=== PATIENT | male | born 1985 | race African-American/Black ===

== ENCOUNTER 2017-10-02 17:39 | Emergency (ER) | payer SELFPAY ==
[~2017-10-02] VITALS: Ht 182.9 cm; Wt 93.0 kg
[2017-10-02 20:54] VITALS: BP 132/76
== END 2017-10-02 20:55 | disposition home or self-care (01) ==
LOC: ER 17:39
DX: Z00.00 Encounter for general adult medical examination without abnormal findings (principal)
CPT/HCPCS: 99281